=== PATIENT | male | born 1950 ===

== ENCOUNTER → 2016-10-24 | Outpatient (REF) ==
[2016-10-24 16:10] LABS: PSA-TOTAL 0.39 ng/mL (0-4)
[2016-10-24 16:11] LABS: THYROID STIMULATING HORMONE 1.9 uIU/mL (0.465-4.680)
== END ==
LOC: ZLAB.WCH 10:30
PROVIDERS: Internal Medicine
DX: Z01.89 Encounter for other specified special examinations (principal)
CPT/HCPCS: G0103

== ENCOUNTER → 2018-01-21 | Outpatient (REF) ==
[2018-01-21 12:02] LABS: PSA-TOTAL 0.62 ng/mL (0-4)
[2018-01-21 14:11] LABS: THYROID STIMULATING HORMONE 3.13 uIU/mL (0.465-4.680)
== END ==
LOC: ZLAB.WCH 10:30
PROVIDERS: Internal Medicine
DX: Z01.89 Encounter for other specified special examinations (principal)
CPT/HCPCS: G0103

== ENCOUNTER → 2018-03-02 | Outpatient (REF) | LOC: ZLAB.WCH 10:31 | DX: Z01.89 Encounter for other specified special examinations (principal) ==

== ENCOUNTER → 2018-03-05 | Outpatient (REF) | LOC: COL.CARD 16:00 | DX: Z01.818 Encounter for other preprocedural examination (principal) ==

== ENCOUNTER → 2018-05-23 | Outpatient (REF) | LOC: ZLAB.WCH 15:52 | DX: Z01.89 Encounter for other specified special examinations (principal) ==